=== PATIENT | male | born 1945 | race Caucasian/White ===

== ENCOUNTER 2017-09-10 07:28 | Emergency (ER) | payer MEDICARE, OTHER ==
[2017-09-10] MEDS ORDERED: Fluorescein Opthalmic Strip ONE (07:48)
[2017-09-10] MEDS ORDERED: Proparacaine 0.5% Opth 15 ML BOT ONE (07:49)
== END 2017-09-10 08:10 | disposition home or self-care (01) ==
LOC: SCSER 07:28
DX: H10.9 Unspecified conjunctivitis (principal); I10 Essential (primary) hypertension; Z79.899 Other long term (current) drug therapy
CPT/HCPCS: 99282

== ENCOUNTER 2022-11-10 08:35 | Outpatient (CLI) | payer MEDICARE, OTHER | END 2022-11-10 08:36 | disposition home or self-care (01) | LOC: BICRAD 08:35 | PROVIDERS: ATTEND Internal Medicine Nephrology | DX: M47.892 Other spondylosis, cervical region (principal); M25.78 Osteophyte, vertebrae | CPT/HCPCS: 36415; 72040; 72072; 72100; 80053; 80061; 81003; 82306; 82550; 82570; 83036; 84156; 84443; 84550; 85025 ==

== ENCOUNTER 2023-09-15 13:04 | Outpatient (CLI) | payer MEDICARE, OTHER | END 2023-09-15 13:05 | disposition home or self-care (01) | LOC: BICRAD 13:04 | PROVIDERS: ATTEND Internal Medicine Nephrology | DX: I13.10 Hypertensive heart and chronic kidney disease without heart failure, with stage 1 through stage 4 chronic kidney disease, or unspecified chronic kidney disease (principal); N18.9 Chronic kidney disease, unspecified; N40.0 Benign prostatic hyperplasia without lower urinary tract symptoms; I73.9 Peripheral vascular disease, unspecified; R31.9 Hematuria, unspecified; R80.9 Proteinuria, unspecified; M10.9 Gout, unspecified; M19.90 Unspecified osteoarthritis, unspecified site; S22.49XA Multiple fractures of ribs, unspecified side, initial encounter for closed fracture; J84.10 Pulmonary fibrosis, unspecified | CPT/HCPCS: 36415; 71046; 80048; 84484 ==

== ENCOUNTER 2024-07-22 15:45 | Outpatient (CLI) | payer MEDICARE, OTHER | END 2024-07-22 15:46 | disposition home or self-care (01) | LOC: BICRAD 15:45 | PROVIDERS: ATTEND Internal Medicine Nephrology | DX: M47.814 Spondylosis without myelopathy or radiculopathy, thoracic region (principal); M47.816 Spondylosis without myelopathy or radiculopathy, lumbar region; M47.812 Spondylosis without myelopathy or radiculopathy, cervical region; M43.17 Spondylolisthesis, lumbosacral region; I13.10 Hypertensive heart and chronic kidney disease without heart failure, with stage 1 through stage 4 chronic kidney disease, or unspecified chronic kidney disease; N18.9 Chronic kidney disease, unspecified; N40.1 Benign prostatic hyperplasia with lower urinary tract symptoms; I73.9 Peripheral vascular disease, unspecified; M10.9 Gout, unspecified; R31.9 Hematuria, unspecified; R80.9 Proteinuria, unspecified | CPT/HCPCS: 72040; 72070; 72100 ==